=== PATIENT | male | born 1960 | race Two or more races ===

== ENCOUNTER 2017-09-23 18:57 | Inpatient (IN) | payer SELFPAY ==
[~2017-09-23] VITALS: Ht 167.6 cm; Wt 96.2 kg
[2017-09-23] MEDS ORDERED: METOPROLOL TARTRATE 25 MG TAB PO ONE (19:15)
[2017-09-23] MEDS ORDERED: HEPARIN SODIUM (PORCINE) 5000 UNITS/ML 1ML VIAL IV ONE (19:15)
[2017-09-23] MEDS ORDERED: ONDANSETRON HCL 4 MG/2 ML VIAL IV ONE (19:15)
[2017-09-23] MEDS ORDERED: ASPirin 81 mg TAB PO ONE ×2 (19:15→21:30)
[2017-09-23] MEDS ORDERED: ATORVASTATIN 20 MG TAB PO ONE (19:15)
[2017-09-23] MEDS ORDERED: MORPHINE SULF INJ 2 MG/ML SYRINGE 1ML IV ONE (19:15)
[2017-09-23 19:26] LABS: Basophils # (auto) 0 uL; Basophils % (auto) 0.2 % (0.0-2.0); Eosinophils # (auto) 0 uL; Eosinophils % (auto) 0.3 % (0.0-7.0); Hematocrit 45.6 % (41.0-53.0); Hemoglobin 15.9 g/dL (13.5-17.5); Lymphocytes # (auto) 2.4 uL; Lymphocytes % (auto) 15.2 % (10.0-50.0); Mean Corpuscular Hgb Conc. 34.9 g/dL (32.0-36.0); Mean Corpuscular Volume 94.6 fL (80.0-100.0); Monocytes # (auto) 1.4 uL; Monocytes % (auto) 8.9 % (0.0-12.0); Neutrophils # (auto) 11.7 uL; Neutrophils % (auto) 75.4 % (37.0-80.0); Platelet Count (auto) 218 10^3/uL (140-450); Red Blood Cells 4.82 10^6/uL (4.5-5.90); Red Cell Distribution Width 13.1 % (11.8-14.3); White Blood Cell 15.6 10^3/uL (4.4-10.8)
[2017-09-23] MEDS ORDERED: TEMAZEPAM 15 MG CAP PO PRN (19:30)
[2017-09-23] MEDS ORDERED: NITROGLYCERIN 0.4 MG SL TAB SL PRN (19:30)
[2017-09-23] MEDS ORDERED: ACETAMINOPHEN 500 MG TAB PO PRN (19:30)
[2017-09-23] MEDS ORDERED: HYDROcodone-ACET 5/325MG TAB PO PRN (19:30)
[2017-09-23] MEDS ORDERED: MORPHINE SULF INJ 2 MG/ML SYRINGE 1ML IV PRN ×5 (19:30→21:45)
[2017-09-23] MEDS ORDERED: PROMETHAZINE HCL 25 MG/ML 1ML IV PRN (19:30)
[2017-09-23] MEDS ORDERED: LORazepam 0.5 MG TAB PO PRN (19:30)
[2017-09-23] MEDS ORDERED: EPINEPHrine HCL 1 MG/10 ML SYRG ONE (19:35)
[2017-09-23] MEDS ORDERED: ATROPINE SULF 1 MG/10ml SYR ONE (19:35)
[2017-09-23] MEDS ORDERED: MIDAZOLAM HCL 1MG/1ML-2 ML VIAL ONE (19:35)
[2017-09-23] MEDS ORDERED: fentaNYL CITRATE 100 MCG/2 ML VL ONE (19:35)
[2017-09-23] MEDS ORDERED: IODIXANOL 320MG/ML 100ML BTL IV ONE (19:35)
[2017-09-23] MEDS ORDERED: LIDOCAINE 2%HCL (LOCAL ANESTH.) INJ 10ml MDV ONE (19:35)
[2017-09-23 19:41] LABS: INR 0.96 (0.9-1.15); Partial Thromboplastin Time 22.1 sec (23.78-33.04); Prothrombin Time 10.3 sec (9.27-12.13)
[2017-09-23] MEDS ORDERED: ANGIOMAX 250 MG VIAL IV ONE ×2 (19:41→20:20)
[2017-09-23] MEDS ORDERED: SODIUM CHL 0.9% 50 ML ONE ×2 (19:42→20:20)
[2017-09-23 19:52] LABS: Albumin 3.8 g/dL (3.4-5.0); BUN/Creatinine Ratio 12.8; Bilirubin, Total 1.1 mg/dL (0.2-1.0); Calcium 9.5 mg/dL (8.5-10.1); Magnesium 2.3 mg/dL (1.6-2.6); Potassium 3.5 mmol/L (3.5-5.1); Total Protein 8.1 g/dL (6.4-8.2)
[2017-09-23] MEDS ORDERED: EPTIFIBATIDE INJ (2MG/ML) 10ML VIAL IV ONE (20:00)
[2017-09-23] MEDS ORDERED: TICAGRELOR 90 MG TAB ONE (20:10)
[2017-09-23] MEDS ORDERED: ASPirin 325 MG TAB ONE (20:10)
[2017-09-23] MEDS ORDERED: HYDROmorphone HCL 2 MG/ML VL ONE (20:16)
[2017-09-23] MEDS ORDERED: METOPROLOL TARTRATE 25 MG TAB PO SCH (22:00)
[2017-09-23] MEDS: ATORVASTATIN 20 MG TAB PO SCH (23:11)
[2017-09-23 23:40] VITALS: BP 129/57
[2017-09-24] VITALS (32 sets, daily range): BP systolic 95–144; BP diastolic 47–86
[2017-09-24] MEDS: ISOSORBIDE DINITRATE 10 MG TAB PO SCH ×3 (00:06→22:34)
[2017-09-24] MEDS: SODIUM CHLORIDE 0.9% 1,000 ML IV SCH ×2 (00:06→05:41)
[2017-09-24 03:49] LABS: Basophils # (auto) 0 uL; Basophils % (auto) 0.2 % (0.0-2.0); Eosinophils # (auto) 0.1 uL; Eosinophils % (auto) 0.6 % (0.0-7.0); Hematocrit 40.8 % (41.0-53.0); Hemoglobin 13.8 g/dL (13.5-17.5); Lymphocytes # (auto) 1.9 uL; Lymphocytes % (auto) 20.9 % (10.0-50.0); Mean Corpuscular Hemoglobin 32.3 pg (28.0-32.0); Mean Corpuscular Hgb Conc. 33.9 g/dL (32.0-36.0); Mean Corpuscular Volume 95.5 fL (80.0-100.0); Monocytes # (auto) 0.8 uL; Monocytes % (auto) 9.2 % (0.0-12.0); Neutrophils # (auto) 6.2 uL; Neutrophils % (auto) 69.1 % (37.0-80.0); Nucleated Red Blood Cells % 0.1 %; Platelet Count (auto) 187 10^3/uL (140-450); Red Blood Cells 4.27 10^6/uL (4.5-5.90); Red Cell Distribution Width 13.2 % (11.8-14.3); White Blood Cell 8.9 10^3/uL (4.4-10.8)
[2017-09-24 05:22] LABS: Urine WBC None Seen /hpf (0 - 3)
[2017-09-24 05:30] LABS: Urine Bacteria FEW /hpf (None Seen); Urine Blood 3+ /uL (Negative); Urine Mucus FEW (None Seen); Urine Specific Gravity 1.037 (1.001-1.035)
[2017-09-24 05:53] LABS: Alcohol, Urine < 3.0 mg/dL (0-5); Amphetamine Screen, Urine NEGATIVE (NEGATIVE); Barbiturate Scree,Urine NEGATIVE (NEGATIVE); Benzodiazephine Screen, Urine POSITIVE (NEGATIVE); Cannabinoid Screen, Urine NEGATIVE (NEGATIVE); Cocaine Screen, Urine NEGATIVE (NEGATIVE); Opiate Scree,Urine NEGATIVE (NEGATIVE); Phencyclidine Screen, Urine NEGATIVE (NEGATIVE)
[2017-09-24] MEDS ORDERED: CLOPIDOGREL BISULFATE 75 MG TAB PO ONE (07:00)
[2017-09-24] MEDS: METOPROLOL TARTRATE 25 MG TAB PO SCH ×2 (10:03→22:00)
[2017-09-24] MEDS: ASPirin 81 mg TAB PO SCH (10:03)
[2017-09-24] MEDS: PANTOPRAZOLE 40 MG TAB PO SCH (10:04)
[2017-09-24] MEDS: NITROGLYCERIN 0.2MG/HR TOPICAL PATCH TD SCH (10:10)
[2017-09-24] MEDS ORDERED: ASPI81TA27 PO (12:56)
[2017-09-24] MEDS ORDERED: COLCPOW2 PO (12:56)
[2017-09-24] MEDS ORDERED: ALLO300T2 PO (12:56)
[2017-09-24] MEDS ORDERED: ATOR20TA50 PO (12:56)
[2017-09-24] MEDS ORDERED: TRAM50TA2 PO (12:56)
[2017-09-24] MEDS ORDERED: CLOP75TA41 PO (12:56)
[2017-09-24] MEDS ORDERED: LISI2.5T47 PO (12:56)
[2017-09-24] MEDS ORDERED: METO25TA5 PO (12:56)
[2017-09-24] MEDS: ATORVASTATIN 20 MG TAB PO SCH (22:00)
[2017-09-25 04:39] VITALS: BP 97/62
[2017-09-25 06:34] LABS: Basophils # (auto) 0 uL; Basophils % (auto) 0.2 % (0.0-2.0); Eosinophils # (auto) 0.1 uL; Eosinophils % (auto) 0.7 % (0.0-7.0); Hematocrit 38.7 % (41.0-53.0); Hemoglobin 13.5 g/dL (13.5-17.5); Lymphocytes # (auto) 1.5 uL; Mean Corpuscular Hemoglobin 33.1 pg (28.0-32.0); Mean Corpuscular Hgb Conc. 34.8 g/dL (32.0-36.0); Mean Corpuscular Volume 95.2 fL (80.0-100.0); Monocytes # (auto) 0.8 uL; Monocytes % (auto) 9.2 % (0.0-12.0); Neutrophils # (auto) 6.1 uL; Neutrophils % (auto) 71.9 % (37.0-80.0); Platelet Count (auto) 165 10^3/uL (140-450); Red Blood Cells 4.06 10^6/uL (4.5-5.90); Red Cell Distribution Width 13.4 % (11.8-14.3); White Blood Cell 8.6 10^3/uL (4.4-10.8)
[2017-09-25 07:11] LABS: BUN/Creatinine Ratio 14.1; Bilirubin, Total 2.8 mg/dL (0.2-1.0); Calcium 8.8 mg/dL (8.5-10.1); Magnesium 2.1 mg/dL (1.6-2.6); Total Protein 6.5 g/dL (6.4-8.2)
[2017-09-25] MEDS ORDERED: CLOPIDOGREL BISULFATE 75 MG TAB PO ONE ×2 (08:00)
[2017-09-25 09:00] VITALS: BP 100/57
[2017-09-25] MEDS: NITROGLYCERIN 0.2MG/HR TOPICAL PATCH TD SCH (09:27)
[2017-09-25] MEDS: PANTOPRAZOLE 40 MG TAB PO SCH (09:27)
[2017-09-25] MEDS: METOPROLOL TARTRATE 25 MG TAB PO SCH ×2 (09:27→22:24)
[2017-09-25] MEDS: ASPirin 81 mg TAB PO SCH (09:27)
[2017-09-25] MEDS: ISOSORBIDE DINITRATE 10 MG TAB PO SCH ×2 (09:28→22:24)
[2017-09-25] MEDS ORDERED: CLOPIDOGREL BISULFATE 75 MG TAB PO SCH (10:00)
[2017-09-25 10:04] LABS: Hepatitis B Surface Antibody Negative
[2017-09-25 10:36] LABS: Hepatitis A Total Antibody Positive
[2017-09-25] MEDS ORDERED: ATOR20TA50 PO (10:40)
[2017-09-25] MEDS ORDERED: ISOS10TA2 PO (10:40)
[2017-09-25] MEDS ORDERED: ASPI81CH43 PO (10:40)
[2017-09-25] MEDS ORDERED: MET25T PO (10:40)
[2017-09-25] MEDS ORDERED: PANT40T PO (10:40)
[2017-09-25] MEDS ORDERED: CLOP75TA28 PO (10:40)
[2017-09-25 13:00] VITALS: BP 114/64
[2017-09-25 13:04] LABS: Hepatitis B Core Total AB Negative
[2017-09-25 13:05] LABS: Hepatitis B Surface Antigen Negative (Negative); Hepatitis C Antibody Negative (Negative)
[2017-09-25 13:55] VITALS: BP 114/64
[2017-09-25 21:30] VITALS: BP 133/74
[2017-09-25] MEDS: ATORVASTATIN 20 MG TAB PO SCH (22:25)
== END 2017-09-25 22:15 | disposition home or self-care (01) | DRG 249 ==
LOC: ER 18:57 → OVERFLOW 18:58 → ICU WEST 23:40 → TELE-WESTW 09-24 15:43
PROVIDERS: ADMIT Internal Medicine; ATTEND Internal Medicine
PROC: 02703DZ Dilation of Coronary Artery, One Artery with Intraluminal Device, Percutaneous Approach (ICD-10-PCS; principal; 2017-09-23)
PROC: 4A023N7 Measurement of Cardiac Sampling and Pressure, Left Heart, Percutaneous Approach (ICD-10-PCS; 2017-09-23)
PROC: B2111ZZ Fluoroscopy of Multiple Coronary Arteries using Low Osmolar Contrast (ICD-10-PCS; 2017-09-23)
PROC: B2151ZZ Fluoroscopy of Left Heart using Low Osmolar Contrast (ICD-10-PCS; 2017-09-23)
PROC: B41J1ZZ Fluoroscopy of Other Lower Arteries using Low Osmolar Contrast (ICD-10-PCS; 2017-09-23)
DX: I21.3 ST elevation (STEMI) myocardial infarction of unspecified site (principal); I25.10 Atherosclerotic heart disease of native coronary artery without angina pectoris; E78.5 Hyperlipidemia, unspecified; E66.9 Obesity, unspecified; K76.0 Fatty (change of) liver, not elsewhere classified; N18.9 Chronic kidney disease, unspecified; I13.10 Hypertensive heart and chronic kidney disease without heart failure, with stage 1 through stage 4 chronic kidney disease, or unspecified chronic kidney disease; Z91.19 Patient's noncompliance with other medical treatment and regimen; Z68.34 Body mass index [BMI] 34.0-34.9, adult
CPT/HCPCS: 36415; 71045; 75710; 76705; 80053; 80061; 80307; 81001; 82550; 83036; 83735; 83880; 84484; 85025; 85610; 85652; 85730; 86704; 86706; 86708; 86803; 87081; 87340; 92928; 93005; 93306; 93458; 96361; 96374; 96375; 99152; A6257; C1887; J2001; J2250; J2405; Q9967